=== PATIENT | male | born 1980 | race Caucasian/White ===

== ENCOUNTER 2021-01-11 10:20 | Day surgery (SDC) | payer BC ==
[2021-01-08 11:55] LABS: BASOPHILS % (AUTO) 0.5 % (0-1); EOSINOPHILS # (AUTO) 0.1 X10'3 (0-0.9); EOSINOPHILS % (AUTO) 2.1 % (0-6); LYMPHOCYTES # (AUTO) 1.1 X10'3 (1.1-4.8); LYMPHOCYTES % (AUTO) 17.5 % (21-51); MEAN CORPUSCULAR HEMOGLOBIN 30.7 PG (27.0-31.0); MEAN CORPUSCULAR VOLUME 90.3 FL (78-98); MEAN PLATELET VOLUME 8.7 FL (7.4-10.4); MONOCYTES # (AUTO) 0.5 X10'3 (0-0.9); MONOCYTES % (AUTO) 7.5 % (2-12); NEUTROPHILS # (AUTO) 4.7 X10'3 (1.8-7.7); NEUTROPHILS % (AUTO) 72.4 % (42-75); PRE OP HEMATOCRIT 46.6 % (42.0-52.0); PRE OP HEMOGLOBIN 15.8 g/dL (14.0-17.9); PRE OP PLATELET COUNT 200 X10'3 (140-440); RED BLOOD COUNT 5.16 X10'6 (4.70-6.10)
[2021-01-08 12:02] LABS: ALBUMIN 3.7 G/DL (3.4-5.0); ALBUMIN/GLOBULIN RATIO 1.1 (1.1-1.5); ALKALINE PHOSPHATASE 80 IU/L (46-116); BLOOD UREA NITROGEN 12 MG/DL (7-18); BUN/CREATININE RATIO 12.5 (5.4-32.0); CALCIUM 8.6 MG/DL (8.5-10.1); CHLORIDE 107 MMOL/L (99-107); CREATININE 0.96 MG/DL (0.60-1.10); PRE OP ALT 72 U/L (30-65); PRE OP ANION GAP 5 (8-16); PRE OP AST 27 U/L (10-37); PRE OP BILIRUB, TOTAL 0.4 MG/DL (0.0-1.0); PRE OP GLUCOSE 130 MG/DL (70-104); PRE OP POTASSIUM 4.2 MMOL/L (3.4-5.1); PRE OP SODIUM 140 MMOL/L (135-145); TOTAL CARBON DIOXIDE 28.2 MMOL/L (24-32); TOTAL PROTEIN 7.2 G/DL (6.4-8.2); eGFR 86 ML/MIN
[~2021-01-11] VITALS: Ht 182.9 cm; Wt 123.0 kg
[2021-01-11] VITALS (10 sets, daily range): BP systolic 94–142; BP diastolic 63–98
[~2021-01-11 10:20] MED LIST: NO HOME MEDS; albuterol 2.5 MG/3 ML nebule NEB ONE; ceFAZolin inj. 3,000 MG in normal saline 100ml IV soln 100 ML IV ONE; famotidine 20mg tablet PO ONE; ringers solution, lacted 1,000 ML IV SCH
[2021-01-11] MEDS ORDERED: morphine 4 MG/ML inj SYRINge IV PRN (11:00)
[2021-01-11] MEDS ORDERED: proCHLORperazine 10 MG/2 ml inj IV PRN (11:00)
[2021-01-11] MEDS ORDERED: meperidine/PF 25mg/ml syringe IV PRN ×3 (11:00)
[2021-01-11] MEDS ORDERED: morphine 2 MG/ML inj. syringe IV PRN (11:00)
[2021-01-11] MEDS ORDERED: ondansetron/PF 4mg/2ml inj IV PRN (11:00)
[2021-01-11] MEDS ORDERED: ringers solution, lacted 1,000 ML IV SCH (11:00)
[2021-01-11] MEDS ORDERED: LIDOcaine 1% 30ml preserv. free vial ONE (11:47)
[2021-01-11] MEDS ORDERED: BUPIVAcaine/PF 2.5 mg/ml (0.25%) 30ml vial ONE (11:47)
[2021-01-11] MEDS ORDERED: fentaNYL/PF 50MCG/1 ML 2ML syringe ONE ×2 (12:56→13:08)
[2021-01-11] MEDS ORDERED: midazolam 1 mg/ML 2ml injection ONE (12:56)
[2021-01-11] MEDS ORDERED: sevoflurane 250ml liquid IH ONE (13:12)
[2021-01-11] MEDS ORDERED: propofol inj 20 ML IV ONE (14:02)
[2021-01-11] MEDS ORDERED: dexamethasone sod phosphate 4mg/ml inj. ONE (14:02)
[2021-01-11] MEDS ORDERED: neostigmine methylsulfate 1 MG/ML 10ml vial ONE (14:02)
[2021-01-11] MEDS ORDERED: LIDOcaine 2% (20mg/ml) 5ml vial ONE (14:02)
[2021-01-11] MEDS ORDERED: glycopyrrolate 0.2mg/ml inj ONE (14:02)
[2021-01-11] MEDS ORDERED: rocuronium 10mg/ml inj IV ONE (14:02)
[2021-01-11] MEDS ORDERED: ondansetron/PF 4mg/2ml inj ONE (14:02)
--- NOTE | 2021-01-11 14:15 | NUR ---
Received from OR via , accompanied by Anesthesiologist DR TAYLOR and report given by Anesthesiolgist. AWAKENS TO VOICE. VITALS STABLE. DRESSINGS DI. NATALIA PAIN. ABD SOFT.
[2021-01-11] MEDS ORDERED: oxyCODONE/APAP 5-325mg tablet PO PRN ×2 (14:20)
--- NOTE | 2021-01-11 16:05 | NUR ---
AWAKE AND ORIENTED. VITALS STABLE. DRESSINGS DI. STATES PAIN IMPROVING. HOME WITH A FRIEND AT THIS TIME.
== END 2021-01-11 16:05 | disposition home or self-care (01) ==
LOC: PAS 10:20
PROVIDERS: ATTEND Surgery
DX: K42.9 Umbilical hernia without obstruction or gangrene (principal); K40.90 Unilateral inguinal hernia, without obstruction or gangrene, not specified as recurrent; E66.9 Obesity, unspecified; Z68.35 Body mass index [BMI] 35.0-35.9, adult; F17.210 Nicotine dependence, cigarettes, uncomplicated; Z72.89 Other problems related to lifestyle; Z98.890 Other specified postprocedural states; Z79.899 Other long term (current) drug therapy
CPT/HCPCS: 36415; 49585; 49650; 80053; 82948; 85025; 93005; C1781; J0690; J1100; J2001; J2175; J2250; J2405; J2704; J2710; J3010; J3490; A4215; A4618; J7120